=== PATIENT | female | born 1990 | race Caucasian/White ===

== ENCOUNTER 2025-07-30 21:15 | Emergency (ER) | payer MEDICAID ==
[~2025-07-30] VITALS: Ht 170.2 cm; Wt 72.6 kg
[2025-07-30 21:34] VITALS: BP 113/91; TEMP 98; O2SAT 98
[2025-07-30] MEDS ORDERED: AMOX-430 PO (21:39)
[2025-07-30] MEDS ORDERED: CIPR7.5D9 LEFT EAR (21:39)
== END 2025-07-30 22:00 | disposition home or self-care (01) ==
LOC: ER 21:18
DX: H66.92 Otitis media, unspecified, left ear (principal)